=== PATIENT | female | born 1995 | race American Indian/Alaskan Native ===

== ENCOUNTER 2017-01-01 20:26 | Emergency (ER) | payer OTHER ==
[2017-01-01] MEDS ORDERED: Sodium Chloride 0.9% 1,000 ML IV STA (21:22)
[2017-01-01 21:40] LABS: PH,URINE 6.5 (4.7-8.0); URINE BILIRUBIN SMALL (NEGATIVE); URINE BLOOD NEGATIVE (NEGATIVE); URINE GLUCOSE (UA) NEGATIVE (NEGATIVE); URINE KETONE TRACE mg/dL (NEGATIVE); URINE LEUKOCYTE ESTERASE TRACE Leu/uL (NEGATIVE); URINE PROTEIN TRACE mg/dL (<30 mg/dL)
[2017-01-01 21:46] LABS: URINE APPEARANCE SL CLOUDY (CLEAR); URINE COLOR DARK YELLOW (YELLOW)
[2017-01-01 21:49] LABS: URINE BACTERIA FEW (NEG); URINE RBC NEGATIVE /hpf (0-2)
[2017-01-01 21:54] LABS: BASO # 0.02 K/mm3 (0.0-2.0); BASO % 0.3 % (0.0-3.0); EOS # 0.2 (0.0-0.7); EOS % 2.4 % (1.5-5.0); GRAN # 4.14 (1.4-6.5); GRAN % 55.9 % (50.0-68.0); HEMATOCRIT 36.7 % (36.0-48.0); LYMPH # 2.5 (1.2-3.4); LYMPH % 34.2 % (22.0-35.0); MEAN CELL VOLUME 87.6 fl (80.0-105.0); MEAN CORPUSCULAR HEMOGLOBIN 29.1 pg (25.0-35.0); MEAN CORPUSCULAR HGB CONC 33.2 g/dl (31.0-37.0); MEAN PLATELET VOLUME 9.8 fl (7.0-11.0); MONO # 0.5 (0.1-0.6); MONO % 7.2 % (1.0-6.0); RED CELL DISTRIBUTION WIDTH 13.7 % (11.5-14.5); WHITE BLOOD COUNT 7.4 10^3/ul (4.5-11.0)
--- NOTE | 2017-01-01 22:00 | ED PDOC ---
Arrival/HPI <Valeriy Combs - Last Filed: 01/01/17 22:12> - General Historian: Patient - History of Present Illness Time/Duration: Other (6 days) Symptom Onset: Gradual Symptom Course: Worsening Quality: Burning Severity Level: 7 <Sarah Thakkar - Last Filed: 01/01/17 23:35> - General Chief Complaint: GI Problem Time Seen by Provider: 01/01/17 21:22 - History of Present Illness Narrative History of Present Illness (Text): 01/01/17 21:57 21-year-old female presents today with epigastric pain 6 days. Patient complaining of nausea and vomiting. Patient states she has prior history of gastritis since she was 14. Patient states occasionally she'll get a flareup of her gastritis condition will get epigastric pain nausea and vomiting. Patient states symptoms are very similar to her previous flareups. Patient complaining of diarrhea. Denies chest pain or shortness of breath. Denies urinary symptoms. Denies back pain/flank pain. Denies vaginal bleeding or discharge. pt also states that she woke up today with foreign body sensation in right eye with slight redness. denies trauma or injury. No other complaints. (Sarah Thakkar) Past Medical History - Provider Review Nursing Documentation Reviewed: Yes - Travel History Have you recently traveled outside [place] w/in the past 3 mons?: No - Tetanus Immunization Tetanus Immunization: Unknown - Gastrointestinal Hx Gastritis: Yes - Psychiatric Hx Substance Use: (b) <Sarah Thakkar - Last Filed: 01/01/17 23:35> Family/Social History - Physician Review Nursing Documentation Reviewed: Yes Family/Social History: Unknown Family HX Smoking Status: Unknown If Ever Smoked Hx Alcohol Use: No Hx Substance Use: No <Sarah Thakkar - Last Filed: 01/01/17 23:35> Allergies/Home Meds <Valeriy Combs - Last Filed: 01/01/17 22:12> <Sarah Thakkar - Last Filed: 01/01/17 23:35> Allergies/Adverse Reactions: Allergies No Known Allergies Allergy (Verified 01/01/17 20:59) Review of Systems - Review of Systems Constitutional: absent: Fatigue, Fevers Eyes: Eye Pain (fb sensation). absent: Vision Changes, Photophobia Respiratory: absent: SOB, Cough Cardiovascular: absent: Chest Pain, Palpitations Gastrointestinal: Abdominal Pain, Diarrhea, Nausea, Vomiting Genitourinary Female: absent: Dysuria, Frequency, Hematuria, Vaginal Bleeding, Vaginal Discharge Musculoskeletal: absent: Arthralgias, Back Pain, Neck Pain Skin: absent: Rash, Pruritis Neurological: absent: Headache, Dizziness Psychiatric: absent: Anxiety, Depression <Sarah Thakkar - Last Filed: 01/01/17 23:35> Physical Exam Vital Signs Reviewed: Yes Temperature: Afebrile Blood Pressure: Normal Pulse: Regular Respiratory Rate: Normal Appearance: Positive for: Well-Appearing, Non-Toxic, Comfortable Pain Distress: None Mental Status: Positive for: Alert and Oriented X 3 - Systems Exam Head: Present: Atraumatic Pupils: Present: PERRL Extroacular Muscles: Present: EOMI Conjunctiva: Present: Injected (right eye; minimal conjunctival injection; no corneal abrasion. no hyphema. no foreign body, no periorbital edema erythema or tenderness. ) Mouth: Present: Moist Mucous Membranes Nose (External): Present: Atraumatic Neck: Present: Normal Range of Motion Respiratory/Chest: Present: Clear to Auscultation, Good Air Exchange. No: Respiratory Distress, Accessory Muscle Use Cardiovascular: Present: Regular Rate and Rhythm, Normal S1, S2. No: Murmurs Abdomen: Present: Tenderness (+ epigastric tenderness), Normal Bowel Sounds. No : Distention, Peritoneal Signs, Rebound, Guarding Back: Present: Normal Inspection. No: CVA Tenderness, Midline Tenderness, Paraspinal Tenderness Upper Extremity: Present: Normal ROM Lower Extremity: Present: Normal ROM. No: Edema Neurological: Present: GCS=15, Speech Normal Skin: Present: Warm, Dry, Normal Color. No: Rashes Psychiatric: Present: Alert, Oriented x 3 <Sarah Thakkar - Last Filed: 01/01/17 23:35> Vital Signs Temp Pulse Resp BP Pulse Ox 01/01/17 21:13 98.2 F 60 16 99 01/01/17 20:32 98.2 F 57 L 18 112/68 100 Medical Decision Making <Valeriy Combs - Last Filed: 01/01/17 22:12> <Sarah Thakkar - Last Filed: 01/01/17 23:35> ED Course and Treatment: 01/01/17 22:00 Patient is nontoxic well appearing with stable vital signs presenting with epigastric abdominal pain, N/v/d x 6 days CBC wnl CMP wnl Lipasewnl Urinalysis + nitrates, no leukocytes, + bacteria. pt given zofran, pepcid with improvement in abdominal pain. Us abdominal: FINDINGS: Liver: Unremarkable echogenicity and size measuring 14 cm in longitudinal dimension. No intrahepatic bile duct dilation. Gallbladder: No acute findings. No gallstones. Common bile duct: No stones. No dilation, measuring 3.7 mm. Pancreas: Visualization of the pancreas is limited by overlying bowel gas. Right kidney: Unremarkable in echogenicity and size measuring 9.7 x 3.7 x 3.9 cm. No acute findings. No hydronephrosis. Left Kidney: Unremarkable in echogenicity and size measuring 9.1 x 4.2 x 3.8 cm. No hydronephrosis. Spleen: Unremarkable in echogenicity and size measuring 7.6 cm in longitudinal dimension. Aorta: Unremarkable. Inferior vena cava: patent. IMPRESSION: Limited evaluation of the pancreas, secondary to overlying bowel gas. Otherwise, unremarkable sonographic evaluation of the abdomen, as detailed above. Patient reassessment:pt feeling better after medications; denies abdominal pain. right eye; no corneal abrasion; no corneal ulcer. no dye uptake; visual acuity wnl. will start patient on tobramycin; advised f/u with eye doctor. Discussed all results with patient in depth. advised f/u with PMD tomorrow. advised f/u with Gi doctor within the next 2 days. advised immediate return if symptoms worsen,persist or if new symptoms develop. Patient verbalizes understanding of discharge instructions and need for immediate followup. all aspects of this case were discussed the attending of record. Impression: Abdominal pain, conjunctivitis tobramycin; 2drops to right eye 3 times daily x 7 days. Pepcid one tablet daily Follow up with the GI doctor within the next 2days. Follow up with the eye doctor within the next 2 days. Follow up with primary care physician within the next 2 days Return immediately if symptoms worsen persist or if new symptoms develop: High fevers, increasing pain, vomiting, diarrhea or any other concerning symptoms develop (Sarah Thakkar) - Lab Interpretations Lab Results: 01/01/17 21:41 01/01/17 21:41 Lab Results 01/01/17 21:41: WBC 7.4, RBC 4.19, Hgb 12.2, Hct 36.7, MCV 87.6, MCH 29.1, MCHC 33.2, RDW 13.7, Plt Count 290, MPV 9.8, Gran % 55.9, Lymph % (Auto) 34.2, Turner % (Auto) 7.2 H, Eos % (Auto) 2.4, Baso % (Auto) 0.3, Gran # 4.14, Lymph # 2.5, Turner # 0.5, Eos # 0.2, Baso # 0.02 01/01/17 21:41: Sodium 141, Potassium 4.2, Chloride 103, Carbon Dioxide 26, Anion Gap 16, BUN 13, Creatinine 0.7, Est GFR ( Amer) > 60, Est GFR (Non- Af Amer) > 60, Random Glucose 70, Calcium 9.3, Total Bilirubin 0.6, AST 27, ALT 23, Alkaline Phosphatase 76, Total Protein 8.2, Albumin 4.6, Globulin 3.6, Albumin/Globulin Ratio 1.3, Lipase 149 01/01/17 20:51: Urine Color Dark yellow, Urine Appearance Sl cloudy, Urine pH 6.5, Ur Specific [place] 1.025, Urine Protein Trace H, Urine Glucose (UA) Negative, Urine Ketones Trace H, Urine Blood Negative, Urine Nitrate Positive H , Urine Bilirubin Small H, Urine Urobilinogen 1.0 H, Ur Leukocyte Esterase Trace H, Urine RBC Negative, Urine WBC 2 - 5, Ur Epithelial Cells 10 - 12, Urine Bacteria Few, Urine HCG, Qual Negative - RAD Interpretation Radiology Orders: 01/01/17 22:03 ABDOMEN COMPLETE [US] Stat - Medication Orders Current Medication Orders: Discontinued Medications Famotidine (Pepcid) 20 mg IVP STAT STA Stop: 01/01/17 21:23 Last Admin: 01/01/17 21:43 Dose: 20 mg IVP Administration Document 01/01/17 21:43 [email or web address] (Rec: 01/01/17 21:43 [email or web address] [facility] [place], [place]- [id number]) Charges for Administration # of IVP Administrations 1 Fluorescein Sodium (Ossvi-K-Xjgni A.T.) 1 mg OS ONCE ONE Stop: 01/01/17 23:02 Sodium Chloride (Sodium Chloride 0.9%) 1,000 mls @ 999 mls/hr IV .Q1H1M STA Stop: 01/01/17 22:22 Last Admin: 01/01/17 21:43 Dose: 999 mls/hr eMAR Start Stop Document 01/01/17 21:43 [email or web address] (Rec: 01/01/17 21:43 [email or web address] [facility] [place], [place]- [id number]) Intravenous Solution Start Date 01/01/17 Start Time 21:43 End Date 01/01/17 Nitrofurantoin Macrocrystals (Macrobid) 100 mg PO STAT STA Stop: 01/01/17 23:00 Ondansetron HCl (Zofran Inj) 4 mg IVP STAT STA Stop: 01/01/17 21:23 Last Admin: 01/01/17 21:43 Dose: 4 mg IVP Administration Document 01/01/17 21:43 [email or web address] (Rec: 01/01/17 21:43 [email or web address] [facility] [place], [place]- [id number]) Charges for Administration # of IVP Administrations 1 - 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 / has examined the patient and agrees with the treatment plan. <Valeriy Combs - Last Filed: 01/01/17 22:12> Disposition/Present on Arrival <Valeriy Combs - Last Filed: 01/01/17 22:12> - Present on Arrival Any Indicators Present on Arrival: No History of DVT/PE: No History of Uncontrolled Diabetes: No Urinary Catheter: No History of Decub. Ulcer: No History Surgical Site Infection Following: None - Disposition Have Diagnosis and Disposition been Completed?: Yes Disposition Time: 23:18 Patient Plan: Discharge <Sarah Thakkar - Last Filed: 01/01/17 23:35> - Disposition Diagnosis: Abdominal pain, Conjunctivitis Disposition: HOME/ ROUTINE Condition: GOOD Discharge Instructions (ExitCare): Acute Abdominal Pain (ED), Conjunctivitis ( ED) Additional Instructions: tobramycin; 2drops to right eye 3 times daily x 7 days. Pepcid one tablet daily Follow up with the GI doctor within the next 2days. Follow up with the eye doctor within the next 2 days. Follow up with primary care physician within the next 2 days Return immediately if symptoms worsen persist or if new symptoms develop: High fevers, increasing pain, vomiting, diarrhea or any other concerning symptoms develop Prescriptions: Famotidine [Pepcid] 20 mg PO DAILY #30 tab Tobramycin 0.3% [Tobramycin 5 Ml] 2 drop OD QID #1 bottle Referrals: [facility] at [facility] [place] [place] [Outside] - Follow up with primary Rian Brown MD [Staff Provider] - Follow up with primary Maria Del Carmen TAMAYO,MD Mary [Medical Doctor] - Follow up with primary Najma Duncan MD [Staff Provider] - Follow up with primary Forms: [employer] (Portuguese), WORK NOTE
[2017-01-01 22:03] LABS: ALB/GLOB RATIO 1.3 (1.1-1.8); ALKALINE PHOSPHATASE 76 U/L (38-126); ALT/SGPT 23 U/L (7-56); AST/SGOT 27 U/L (14-36); BILIRUBIN,TOTAL 0.6 mg/dL (0.2-1.3); BLOOD UREA NITROGEN 13 mg/dL (7-21); CALCIUM 9.3 mg/dL (8.4-10.5); CARBON DIOXIDE 26 mmol/L (21-33); CHLORIDE 103 mmol/L (98-107); GFR AFRICAN-AMERICAN > 60; GLUCOSE,RANDOM 70 mg/dL (70-110); LIPASE 149 U/L (23-300); POTASSIUM 4.2 mmol/L (3.6-5.0); SODIUM 141 mmol/L (132-148); TOTAL PROTEIN 8.2 g/dL (5.8-8.3)
--- NOTE | 2017-01-01 22:49 | US ---
EXAM: US Abdomen Complete CLINICAL HISTORY: 21 years old, female; Pain; Abdominal pain; Epigastric; Additional info: Upper abdominal pain TECHNIQUE: Real-time ultrasound of the abdomen (complete) with image documentation. COMPARISON: No relevant prior studies available. FINDINGS: Liver: Unremarkable echogenicity and size measuring 14 cm in longitudinal dimension. No intrahepatic bile duct dilation. Gallbladder: No acute findings. No gallstones. Common bile duct: No stones. No dilation, measuring 3.7 mm. Pancreas: Visualization of the pancreas is limited by overlying bowel gas. Right kidney: Unremarkable in echogenicity and size measuring 9.7 x 3.7 x 3.9 cm. No acute findings. No hydronephrosis. Left Kidney: Unremarkable in echogenicity and size measuring 9.1 x 4.2 x 3.8 cm. No hydronephrosis. Spleen: Unremarkable in echogenicity and size measuring 7.6 cm in longitudinal dimension. Aorta: Unremarkable. Inferior vena cava: patent. IMPRESSION: Limited evaluation of the pancreas, secondary to overlying bowel gas. Otherwise, unremarkable sonographic evaluation of the abdomen, as detailed above.
[2017-01-01] MEDS ORDERED: Fluorescein 1 mg Ophthalmic Strip OS ONE (23:01)
[2017-01-01 23:33] VITALS: BP 125/69; PULSE 62; TEMP 98; O2SAT 98
[2017-01-01 23:54] VITALS: RESP 17
== END 2017-01-01 23:54 | disposition home or self-care (01) ==
LOC: ED 20:26
DX: R10.13 Epigastric pain (principal); H10.9 Unspecified conjunctivitis
CPT/HCPCS: 76700; 80053; 81001; 83690; 84703; 85025; 87086; 96374; 96375; 99284; J2405; J7040